=== PATIENT | male | born 1995 | race Caucasian/White ===

== ENCOUNTER 2018-09-05 22:33 | Emergency (ER) | payer OTHER ==
[~2018-09-05] VITALS: Ht 188 cm; Wt 131.5 kg
[2018-09-05 22:42] VITALS: BP 105/66
[2018-09-05] MEDS ORDERED: CELEXA 10 MG TA10 M1 PO (22:49)
== END 2018-09-05 23:30 | disposition home or self-care (01) ==
LOC: ER 22:33
DX: Z77.098 Contact with and (suspected) exposure to other hazardous, chiefly nonmedicinal, chemicals (principal)

== ENCOUNTER 2020-11-09 23:18 | Inpatient (IN) | payer OTHER ==
[~2020-11-09] VITALS: Ht 185.4 cm; Wt 136.5 kg
--- NOTE | ~2020-11-09 | O ---
[facility] [place] [address] OPERATIVE REPORT Name: ASHLEY WOODS Room #: 441-P ADM IN M.R.#: [id number] Admission: 11/10/20 Attend Phys: Raul Trujillo MD Discharge: Date of : 89 Report #: [id number] THIS REPORT FOR: cc: [facility] - Clinic physician unknown [facility] - Clinic physician unknown Benjy Chaudhary MD ~ DATE OF SERVICE: 11/10/2020 PREOPERATIVE DIAGNOSIS: Acute cholecystitis. POSTOPERATIVE DIAGNOSIS: Acute cholecystitis. OPERATION: Laparoscopic cholecystectomy. SURGEON: Benjy Chaudhary MD. ANESTHESIA: General. ESTIMATED BLOOD LOSS: Minimal. SPECIMEN: Gallbladder. DESCRIPTION OF PROCEDURE: After informed consent was obtained, the patient was brought to the operating room and placed supine. SCDs were placed and working, preoperative antibiotics were administered, general anesthesia was induced. The abdomen was prepped and draped in the usual sterile fashion. A 10 mm incision was made above the umbilicus. Fascia was incised and a trocar was placed. Pneumoperitoneum was established. Three right upper quadrant 5 mm ports were placed. Gallbladder was grasped at the fundus and retracted cephalad. Infundibulum was grasped and retracted laterally. I dissected out the cystic duct and cystic artery. Cystic plate was fully identified. The cystic duct and artery were clipped and ligated leaving 2 clips on the remaining duct and 1 on the remaining artery. Gallbladder was then taken off the liver bed with electrocautery. It was placed into an Endopouch and removed. Fascia was then closed with a [id number] 0 Vicryl. Skin was closed with 4-0 Monocryl. Incisions were sealed with Steri-Strips. COMPLICATIONS: None. DISPOSITION: The patient was taken to recovery in satisfactory condition. By: [id number] Benjy Chaudhary MD /nt
[~2020-11-09 23:18] MED LIST: CELEXA 10 MG TA10 M1 PO
[2020-11-09 23:29] VITALS: BP 151/84; BP 157/84
[2020-11-09 23:48] LABS: ABSOLUTE NEUTROPHILS 4.1 thou/uL (1.4-8.2); BASOPHILS 0.8 % (0.0-2.0); EOSINOPHILS 2.4 % (0.0-3.0); HEMATOCRIT 48.1 % (42.0-52.0); HEMOGLOBIN 16.4 gm/dL (14.0-18.0); LYMPHOCYTES 46.4 % (24.0-44.0); MCH 28.1 pg (26.0-34.0); MCHC 34.1 g/dL (28.0-37.0); MCV 82.6 fL (80.0-100.0); MONOCYTES 9.1 % (1.0-8.0); PLATELET COUNT 317 thou/uL (150-400); POLYS 41.3 % (36.0-66.0); RBC 5.83 mil/uL (4.50-6.00); RDW 13.2 % (10.5-14.5)
[2020-11-09 23:49] VITALS: BP 151/84
[2020-11-09] MEDS ORDERED: BUPROPION HCL100 MG PO (23:54)
[2020-11-09 23:55] LABS: CALCIUM 9.7 mg/dL (8.5-10.1); CREATININE 1.1 mg/dL (0.7-1.3); POTASSIUM 4.1 mmol/L (3.5-5.1)
[2020-11-10 00:01] LABS: ALBUMIN 4.6 g/dL (3.4-5.0); TOTAL BILIRUBIN 0.6 mg/dL (0.2-1.0); TOTAL PROTEIN 8.4 g/dL (6.4-8.2)
[2020-11-10 01:21] LABS: URINE BILIRUBIN NEGATIVE (Negative); URINE BLOOD NEGATIVE (Negative); URINE CLARITY CLEAR; URINE COLOR YELLOW; URINE GLUCOSE-RANDOM* NEGATIVE (Negative); URINE KETONES NEGATIVE (Negative); URINE LEUKOCYTES-REFLEX NEGATIVE (Negative); URINE NITRITE-REFLEX NEGATIVE (Negative); URINE PROTEIN (DIPSTICK) NEGATIVE (Negative); URINE SPECIFIC GRAVITY 1.025 (1.005-1.035); URINE UROBILINOGEN 0.2 E.U./dl (0.2-1.0)
[2020-11-10 06:55] VITALS: BP 154/78
[2020-11-10 07:14] VITALS: BP 102/61
[2020-11-10 07:35] VITALS: BP 120/76
--- NOTE | 2020-11-10 09:17 | NUR ---
ASSESSMENT: CM REVIEWED CHART AND SPOKE WITH PATIENT. PT WAS ADMITTED FOR GALLSTONES. PT REPORTS THAT HE LIVES IN AN APT. PT REPORTS BEING FULLY INDEPENDENT WITH ADLS AND AMBULATION. PT REPORTS THAT HE HAS A PCP. PT IS CURRENTLY ON IV ANBX AND AWAITING FURTHER PLANS AT THIS TIME. CM WILL CONTINUE TO FOLLOW TO ASSIST NEEDED.
--- NOTE | 2020-11-10 10:40 | NUR ---
Pt arrived to floor per cart from emergency room at 0730.Admission history, assessment and careplan completed.Dr Trujillo notified about pt admitted to floor.Received call from Dr Chaudhary that pt will be going for surgery today at noon.Pt notified and kept npo.No verbal c/o.Will continue to monitor.
[2020-11-10 18:15] VITALS: BP 128/72
[2020-11-10 19:22] VITALS: BP 126/68
--- NOTE | 2020-11-11 02:35 | NUR ---
PER REPORT,PT DECIDED TO STAY OVER FOR THE NIGHT.IMMEDIATELY AFTER SHIFT CHANGE,PT WAS ENCOURAGED TO GET UP AND WALK AROUND IN THE UNIT.PT LATER STATED THAT HE WOULD WANT TO DC BUT LATER DECIDED TO STAY DUE TO PAIN MGT.PT WAS ABLE TO TOLERATE FULL LIQUIDS WITHOUT ANY PROBLEM.PT SLEEPING WITH HIS CPAP AT THIS TIME.CONTINUOUS PULSE OX IN PLACE.CALL LIGHT WITHIN REACH.
[2020-11-11 04:15] VITALS: BP 109/65
[2020-11-11 07:45] VITALS: BP 118/73
--- NOTE | 2020-11-11 08:50 | NUR ---
ON-GOING ASSESSMENT: PT HAD LAP SONG AND HAS ORDERS TO DISCHARGE HOME TODAY WITH NO NEEDS.
--- NOTE | 2020-11-11 08:51 | NUR ---
ASSUMED PT CARE THIS AM. PT IS ALERT & ORIENTED X4. PT IS UP AD LIANG. PT HAS SURGERY TODAY AND RATED PAIN 4/10 AND NOT GIVEN MEDICATED PER PT REQUEST. PT USES CPAP @ NIGHT. PT USES IS. PT ON THE BED WATCHING TV, BED ON THE LOWEST POSITION, SIDE RAILS UP, CALL LIGHT WITHIN REACH. WILL CONTINUE TO MONITOR PT. FOLLOW POC.
[2020-11-11 08:53] VITALS: BP 109/65
--- NOTE | 2020-11-14 17:06 | PATH ---
[facility] [address] [place] [address] PATHOLOGY RPT PROCEDURE Name: ASHLEY WOODS Room #: 441-P [facility] IN M.R.#: [id number] Admission: 11/10/20 Date of : [birth year] Discharge: 11/11/20 Report #: [id number] Path Case #: [id number] [facility] Accession Number: [id number] . 01 Material submitted: . gallbladder - GALLBLADDER . 01 Clinical history: . LAPAROSCOPIC CHOLECYSTECTOMY CHOLELITHIASIS . 02 Diagnosis: Gallbladder, cholecystectomy: - Mild chronic cholecystitis. - Cholesterolosis. (IUV:shellfish weigher; 11/14/2020) MBR 11/14/2020 1536 Local . 02 Electronically signed: . Luisa Siegel MD, Pathologist NPI- [id number] . 01 Gross description: . Fixative: Formalin Labeled: Gallbladder Specimen received: Intact gallbladder Dimensions: 8.0 x 4.0 x 3.2 cm Serosa: Blue[place]skel[place] Mucosa: Velvety, bile-stained with mild, diffuse cholesterolosis Average wall thickness: 0.1 cm Calculi: Not identified Abnormalities: None identified . Help Desk Support Specialist body, fundus, and the cystic duct margin in A1. (CAA; 11/11/2020) QAC/QA 11/11/2020 1202 Local . 02 Pathologist provided ICD-10: K81.1, K82.4 . 02 CPT . 042258 Specimen Comment: A courtesy copy of this report has been sent to [phone] Specimen Comment: Report sent to DR IZAGUIRRE / DR BREWSTER Performed at: [address] [facility] [id number] [facility] [address], [place] [id number] [address] [address] PATHOLOGY RPT PROCEDURE Name: ASHLEY WOODS Room #: 441-P DIS IN M.R.#: [id number] Admission: 11/10/20 Date of : [birth year] Discharge: 11/11/20 Report #: [id number] Path Case #: [id number] MD Cameron Escamilla MD Phone: [phone] Performed at: [address] [id number] MD Luisa Siegel MD Phone: [phone]
== END 2020-11-11 09:54 | disposition home or self-care (01) | DRG 419 ==
LOC: ER 23:18 → EROBS 11-10 02:14 → 4S 11-10 02:14
PROVIDERS: Emergency Medicine; ADMIT Surgery; ATTEND Surgery
PROC: 0FT44ZZ Resection of Gallbladder, Percutaneous Endoscopic Approach (ICD-10-PCS; principal; 2020-11-10)
DX: K80.00 Calculus of gallbladder with acute cholecystitis without obstruction (principal); Z87.81 Personal history of (healed) traumatic fracture; Z20.822 Contact with and (suspected) exposure to COVID-19
CPT/HCPCS: 10102; 50010; 50101; 50411; 50555; 51489; 52265; 52266; 53307; 53312; 53314; 55245; 56462; 56525; 56526; 58574; 62110; 62900; 70005

== ENCOUNTER 2021-04-24 08:52 | Emergency (ER) | payer OTHER ==
[~2021-04-24] VITALS: Ht 185.4 cm; Wt 98.9 kg
[~2021-04-24 08:52] MED LIST changes: +BUPROPION HCL100 MG PO
[2021-04-24] MEDS ORDERED: FLUOXETINE HCL40 MG PO (08:58)
[2021-04-24 10:01] LABS: ABSOLUTE NEUTROPHILS 4.3 thou/uL (1.4-8.2); BASOPHILS 0.6 % (0.0-2.0); EOSINOPHILS 1.8 % (0.0-3.0); HEMATOCRIT 45.1 % (42.0-52.0); HEMOGLOBIN 15.2 gm/dL (14.0-18.0); MCHC 33.7 g/dL (28.0-37.0); MONOCYTES 8.8 % (1.0-8.0); PLATELET COUNT 282 thou/uL (150-400); POLYS 62.8 % (36.0-66.0); RBC 5.43 mil/uL (4.50-6.00); WBC 6.8 thou/uL (4.0-11.0)
[2021-04-24 10:08] LABS: ANION GAP 7 mmol/L (7-16); BUN 17 mg/dL (7-18); CALCIUM 8.8 mg/dL (8.5-10.1); CHLORIDE 106 mmol/L (98-107); CO2 28 mmol/L (21-32); GLUCOSE 97 mg/dL (74-106); SODIUM 141 mmol/L (136-145)
[2021-04-24 10:18] LABS: ALBUMIN 3.8 g/dL (3.4-5.0); SGOT 22 U/L (15-37); SGPT 39 U/L (30-65); TOTAL BILIRUBIN 0.7 mg/dL (0.2-1.0)
[2021-04-24 10:23] VITALS: BP 132/69
--- NOTE | 2021-04-24 16:26 | EKG ---
[address] [address] ELECTROCARDIOGRAM REPORT Name: ASHLEY WOODS Room #: DEP JENNA De León#: [id number] Admission: 04/24/21 Attend Phys: Discharge: 04/24/21 Date of : [birth year] Report #: [id number] [facility] ED Test Date: 2021-04-24 Test Time: 08:49:21 Pat Name: ASHLEY WOODS Department: Room: Gender: Tensile Tester: AYAKA : 1995 Requested By: Kenneth Marie Order Number: [id number] MD: Khoa Montiel Measurements Intervals [place] Rate: 83 P: 51 UT: 136 QRS: 54 QRSD: 91 T: 24 QT: 364 QTc: 428 Interpretive Statements Sinus rhythm No previous ECG available for comparison Electronically Signed On 04-24-2021 16:26:04 CDT by Khoa Montiel [email or web address] <ELECTRONICALLY SIGNED> By: Khoa Montiel MD, [facility] 04/24/21 1626 0849 0849 Khoa Montiel MD, FACC /EPI
== END 2021-04-24 10:23 | disposition home or self-care (01) ==
LOC: ER 08:52
PROVIDERS: Emergency Medicine
DX: M79.10 Myalgia, unspecified site (principal); Z90.49 Acquired absence of other specified parts of digestive tract